=== PATIENT | male | born 2000 | race American Indian/Alaskan Native ===

== ENCOUNTER 2021-07-14 21:22 | Emergency (ER) | payer SELFPAY ==
[2021-07-15] MEDS ORDERED: IBUPROFEN 800 MG TAB PO ONE (00:57)
--- NOTE | 2021-07-15 01:15 | Emergency Department Report ---
ED General Adult HPI - General Chief complaint: Dyspnea/Respdistress Stated complaint: BRIAN/CHEST PAIN Time Seen by Provider: 07/15/21 00:56 Source: EMS Mode of arrival: Stretcher Limitations: No Limitations - History of Present Illness Initial comments: Patient 20-year-old male who presents for cough for the past week now causing t chest pain. With cough that radiates to back. There is no fevers no chills cough is productive yellow clear. Patient denies fevers or chills there is no wheezing or shortness of breath. Patient denies history of asthma states family history of bronchitis and seasonal allergies. Patient denies sore throat or ear pain. There is been no nausea no vomiting no lightheadedness or dizziness. Pain is rated at 4/10 sharp with cough only. - Related Data Previous Rx's Medication Instructions Recorded Last Taken Type Ibuprofen [Motrin 800 MG tab] 800 mg PO Q8HR PRN #30 tablet 07/15/21 Unknown Rx Allergies Allergy/AdvReac Type Severity Reaction Status Date / Time No Known Allergies Allergy Verified 07/15/21 01:51 ED Review of Systems ROS: Stated complaint: BRIAN/CHEST PAIN Other details as noted in HPI Constitutional: denies: chills, fever Eyes: denies: eye pain, eye discharge, vision change ENT: congestion. denies: ear pain, throat pain Respiratory: cough. denies: shortness of breath, wheezing Cardiovascular: chest pain (Left lateral chest wall pain). denies: palpitations, dyspnea on exertion, orthopnea, paroxysmal nocturnal dyspnea Endocrine: no symptoms reported Gastrointestinal: denies: abdominal pain, nausea, vomiting, diarrhea Genitourinary: denies: urgency, dysuria Musculoskeletal: back pain (With cough.). denies: joint swelling, arthralgia Skin: denies: rash, lesions Neurological: denies: headache, weakness, paresthesias, vertigo Psychiatric: as per HPI Hematological/Lymphatic: denies: easy bleeding, easy bruising ED Past Medical Hx - Past Medical History Previous Medical History?: No - Surgical History Past Surgical History?: No - Social History Smoking Status: Unknown if ever smoked Substance Use Type: None - Medications Home Medications: Home Medications Medication Instructions Recorded Confirmed Last Taken Type Ibuprofen [Motrin 800 MG tab] 800 mg PO Q8HR PRN #30 tablet 07/15/21 Unknown Rx ED Physical Exam - General Limitations: No Limitations General appearance: alert, in no apparent distress - Head Head exam: Present: normocephalic - Eye Eye exam: Present: normal appearance, EOMI Pupils: Present: normal accommodation - ENT ENT exam: Present: mucous membranes moist - Neck Neck exam: Present: normal inspection, full ROM. Absent: tenderness, lymphadenopathy - Respiratory Respiratory exam: Present: normal lung sounds bilaterally, chest wall tenderness (Left lateral to deep palpation only no crepitus no ecchymosis no step-off). Absent: respiratory distress, wheezes, rales, rhonchi, stridor, prolonged expiratory - Cardiovascular Cardiovascular Exam: Present: regular rate, normal rhythm, normal heart sounds. Absent: systolic murmur, diastolic murmur, rubs, gallop - GI/Abdominal GI/Abdominal exam: Present: soft, normal bowel sounds. Absent: distended, tenderness, guarding, rebound, rigid, bruit, hernia - Rectal Rectal exam: Present: deferred - Extremities Exam Extremities exam: Present: normal inspection, full ROM, normal capillary refill - Back Exam Back exam: Present: normal inspection, full ROM. Absent: CVA tenderness (R), CVA tenderness (L) - Neurological Exam Neurological exam: Present: alert, oriented X3, CN II-XII intact, normal gait - Expanded Neurological Exam Expanded Patient oriented to: Present: person, place, time Speech: Present: fluid speech Motor strength exam: RUE: 5, LUE: 5, RLE: 5, LLE: 5 Best Eye Response (Ashleigh): (4) open spontaneously Best Motor Response (Ashleigh): (6) obeys commands Best Verbal Response (Ashleigh): (5) oriented [place] Total: 15 - Psychiatric Psychiatric exam: Present: normal affect, normal mood - Skin Skin exam: Present: warm, dry, intact, normal color. Absent: rash ED Course Vital Signs 07/14/21 21:26 Temperature 98.1 F Pulse Rate 58 L Respiratory 18 Rate Blood Pressure 127/62 O2 Sat by Pulse 100 Oximetry ED Medical Decision Making - Radiology Data Radiology results: report reviewed, image reviewed CHEST 2 VIEWS INDICATION / CLINICAL INFORMATION: Cough, fever, chest pain. COMPARISON: None available. FINDINGS: SUPPORT DEVICES: None. HEART / MEDIASTINUM: No significant abnormality. LUNGS / PLEURA: No significant pulmonary abnormality. No significant pleural effusion. No pneumothorax. ADDITIONAL FINDINGS: No significant additional findings. IMPRESSION: 1. No acute abnormality of the chest. Signer Name: Baldomero Castellanos MD Signed: 07/15/2021 1:39 AM Workstation Name: [id number] Transcribed By: JENNI Dictated By: Baldomero Castellanos MD Electronically Authenticated By: Baldomero Castellanos MD Signed Date/Time: 07/15/21138 DD/ 8 TD/TT: - Medical Decision Making Chest x-ray normal no infiltrates no opacities. This is likely bronchitis URI. Plan DC to home. Continue to take ibuprofen as needed for chest wall pain. Robitussin as needed for cough. Follow-up with your doctor in 2 to 3 days. Patient verbalized agreement and understanding of discharge plan. Patient DC'd home in stable condition at this time. Critical care attestation.: If time is entered above; I have spent that time in minutes in the direct care of this critically ill patient, excluding procedure time. ED Disposition Clinical Impression: Costochondritis, Bronchitis Disposition: HOME / SELF CARE / HOMELESS Is pt being admited?: No Does the pt Need Aspirin: No Condition: Stable Instructions: Chronic Bronchitis (ED), Costochondritis, Byfr-cd-Dles, Upper R espiratory Infection, Adult Additional Instructions: Take medications as prescribed and directed. Follow-up with your doctor in 2 to 3 days. Return to emergency department should symptoms worsen. Prescriptions: Ibuprofen [Motrin 800 MG tab] 800 mg PO Q8HR PRN #30 tablet PRN Reason: pain Referrals: MICHELLE ROBERTS MD [Staff Physician] - 3-5 Days Forms: Work/School Release Form(ED) Time of Disposition: 01:57
--- NOTE | 2021-07-15 01:43 | XRay Report ---
CHEST 2 VIEWS INDICATION / CLINICAL INFORMATION: Cough, fever, chest pain. COMPARISON: None available. FINDINGS: SUPPORT DEVICES: None. HEART / MEDIASTINUM: No significant abnormality. LUNGS / PLEURA: No significant pulmonary abnormality. No significant pleural effusion. No pneumothora x. ADDITIONAL FINDINGS: No significant additional findings. IMPRESSION: 1. No acute abnormality of the chest. Signer Name: Baldomero Castellanos MD Signed: 07/15/2021 1:39 AM Workstation Name: [id number]
[2021-07-15 02:28] VITALS: BP 123/61
--- NOTE | 2021-07-18 13:10 | Electrocardiograph Report ---
[facility] Test Date: 2021-07-14 Test Time: 22:06:07 Pat Name: ARPAN RODRIGUEZ Department: Room: Gender: M Rn Long Term Care: JEFF : 2000 Requested By: KAYLEY CHAUDHARY Order Number: [id number] Reading MD: Shannon Valenzuela Measurements Intervals [place] Rate: 54 P: 16 [place]: 119 QRS: 70 QRSD: 83 T: 72 QT: 415 QTc: 396 Interpretive Statements Sinus bradycardia with irregular rate No previous ECG available for comparison Electronically Signed On 07-18-2021 13:10:43 EDT by Shannon Valenzuela
== END 2021-07-15 02:45 | disposition home or self-care (01) ==
LOC: ED 21:22
DX: J40 Bronchitis, not specified as acute or chronic (principal); M94.0 Chondrocostal junction syndrome [Tietze]
CPT/HCPCS: 71046; 93005; 99284